=== PATIENT | female | born 1950 | race American Indian/Alaskan Native ===

== ENCOUNTER 2018-08-28 15:27 | Emergency (ER) | payer MEDICARE ==
[2018-08-28] MEDS: Ondansetron 4 MG/2 ML SDV IVPUSH ONE (16:27)
[2018-08-28] MEDS: Sodium Chloride 0.9% 1,000 ML IV SCH (16:27)
--- NOTE | 2018-08-28 16:53 | CR ---
Abdomen: Upright and supine views of the abdomen were obtained. Comparison: No previous abdominal x-ray. Multiple calcifications are seen within the pelvis most likely representing multiple phleboliths. Small sclerotic lesion is noted within the intertrochanteric region of the left hip which is felt compatible with incidental bone island. Bowel gas pattern is normal. No free air is seen. Impression: 1. Incidental findings. Nothing acute is appreciated on two-view abdominal x-ray. Diagnostic code #2
--- NOTE | 2018-08-28 18:33 | EDM.PDOC ---
ED HPI GENERAL MEDICAL PROBLEM - General Chief Complaint: Abdominal Pain Stated Complaint: STOMACH PAIN/CAN NOT EAT ANYTHING Time Seen by Provider: 08/28/18 18:16 Source of Information: Reports: Patient, Family (), RN Notes Reviewed History Limitations: Reports: No Limitations - History of Present Illness INITIAL COMMENTS - FREE TEXT/NARRATIVE: The patient states that she has been experiencing burning left lower quadrant abdominal pain that has been coming and going for about 6 months. She feels that her pain is likely related to constipation, as she feels worse after eating constipating foods, and better after having a bowel movement. She has had nausea for the past 2 days, but no emesis. No recent fever or chills. No urinary symptoms. The patient states that she took one Zofran last night, and that she ordinarily takes Milk of Magnesia on an as-needed basis, but none over the past 2 days. She states that she had a bowel movement today that was not hard. The patient and her state that they moved from [place] about 6 months ago, and have not established a PCP here. Epigastric Pain Score (Numeric/FACES): 9 - Related Data Allergies Allergy/AdvReac Type Severity Reaction Status Date / Time No Known Allergies Allergy Verified 08/28/18 15:46 Home Meds: Home Meds Levofloxacin [Levaquin] 1 tab PO QPM #6 tablet 08/28/18 [Rx] metroNIDAZOLE [Flagyl] 1 tab PO Q8H #20 tab 08/28/18 [Rx] Past Medical History Musculoskeletal History: Reports: Osteoarthritis Psychiatric History: Reports: Other (See Below) (Insomnia) - Past Surgical History Female Surgical History: Reports: Hysterectomy (partial) Musculoskeletal Surgical History: Reports: Knee Replacement (bilateral) Social & Family History - Tobacco Use Smoking Status *Q: Never Smoker Second Hand Smoke Exposure: No - Caffeine Use Caffeine Use: Reports: Tea - Alcohol Use Alcohol Use History: No - Recreational Drug Use Recreational Drug Use: No - Living Situation & Occupation Living situation: Reports: , with Spouse Occupation: Unemployed ED ROS GENERAL - Review of Systems Review Of Systems: ROS reveals no pertinent complaints other than HPI. ED EXAM, GI/ABD - Physical Exam Exam: See Below Exam Limited By: No Limitations General Appearance: Alert, WD/WN, No Apparent Distress Eyes: Bilateral: Normal Appearance, EOMI Ears: Normal External Exam, Hearing Grossly Normal Nose: Normal Inspection Throat/Mouth: Normal Inspection, Normal Lips, Normal Voice, No Airway Compromise Head: Atraumatic, Normocephalic Neck: Normal Inspection, Full Range of Motion Respiratory/Chest: No Respiratory Distress, Lungs Clear, Normal Breath Sounds, No Accessory Muscle Use Cardiovascular: Normal Peripheral Pulses, Regular Rate, Rhythm, No Edema, No Gallop, No JVD, No Murmur, No Rub GI/Abdominal Exam: Normal Bowel Sounds, Soft, No Organomegaly, No Distention, No Abnormal Bruit, No Mass, Tender (Left lower quadrant only. Nontender elsewhere.) (Female) Exam: Deferred Rectal (Female) Exam: Deferred Back Exam: Normal Inspection, Full Range of Motion. No: CVA Tenderness (L), CVA Tenderness (R) Extremities: Normal Inspection, Normal Range of Motion, No Pedal Edema, Normal Capillary Refill Neurological: Alert, Oriented, Normal Cognition, No Motor/Sensory Deficits Psychiatric: Normal Affect Skin Exam: Warm, Dry, Intact, Normal Color, No Rash Course - Vital Signs Last Recorded V/S: Last Vital Signs Temp 37.2 C 08/28/18 15:46 Pulse 73 08/28/18 15:46 Resp 18 08/28/18 15:46 BP 130/75 08/28/18 15:46 Pulse Ox 94 L 08/28/18 15:46 - Orders/Labs/Meds Labs: Laboratory Tests 08/28/18 08/28/18 08/28/18 Range/Units 16:04 16:04 17:04 WBC 6.32 (3.98-10.04) K/mm3 RBC 5.40 H (3.98-5.22) M/mm3 Hgb 10.7 L (11.2-15.7) gm/L Hct 34.9 (34.1-44.9) % MCV 64.6 L (79.4-94.8) fl MCH 19.8 L (25.6-32.2) pg MCHC 30.7 L (32.2-35.5) g/dl RDW Std Deviation 44.0 (36.4-46.3) fL Plt Count 277 (182-369) K/mm3 MPV 10.5 (9.4-12.3) fl Neut % (Auto) 60.8 (34.0-71.1) % Lymph % (Auto) 31.5 (19.3-51.7) % [place] % (Auto) 6.0 (4.7-12.5) % Eos % (Auto) 1.3 (0.7-5.8) Baso % (Auto) 0.2 (0.1-1.2) % Neut # (Auto) 3.85 (1.56-6.13) K/mm3 Lymph # (Auto) 1.99 (1.18-3.74) K/mm3 [place] # (Auto) 0.38 H (0.24-0.36) K/mm3 Eos # (Auto) 0.08 (0.04-0.36) K/mm3 Baso # (Auto) 0.01 (0.01-0.08) K/mm3 Manual Slide Review Abnormal smear Sodium 141 (136-145) mEq/L Potassium 3.8 (3.5-5.1) mEq/L Chloride 105 (98-107) mEq/L Carbon Dioxide 28 (21-32) mEq/L Anion Gap 11.8 (5-15) BUN 8 (7-18) mg/dL Creatinine 1.0 (0.55-1.02) mg/dL Est Cr Clr Drug Dosing 47.14 mL/min Estimated GFR (MDRD) 55 (>60) mL/min BUN/Creatinine Ratio 8.0 L (14-18) Glucose 104 (80-115) mg/dL Calcium 8.7 (8.5-10.1) mg/dL Total Bilirubin 0.4 (0.2-1.0) mg/dL AST 14 L (15-37) U/L ALT 21 (14-59) U/L Alkaline Phosphatase 66 (46-116) U/L C-Reactive Protein 0.9 (<1.0) mg/dL Total Protein 7.9 (6.4-8.2) g/dl Albumin 3.7 (3.4-5.0) g/dl Globulin 4.2 gm/dL Albumin/Globulin Ratio 0.9 L (1-2) Lipase 120 (73-393) U/L Urine Color Yellow (Yellow) Urine Appearance Clear (Clear) Urine pH 7.0 (5.0-8.0) Ur Specific [place] 1.015 (1.005-1.030) Urine Protein Negative (Negative) Urine Glucose (UA) Negative (Negative) Urine Ketones Negative (Negative) Urine Occult Blood Negative (Negative) Urine Nitrite Negative (Negative) Urine Bilirubin Negative (Negative) Urine Urobilinogen 0.2 (0.2-1.0) Ur Leukocyte Esterase Trace H (Negative) Urine RBC 0-5 (0-5) /hpf Urine WBC 0-5 (0-5) /hpf Ur Epithelial Cells 0-5 (0-5) /hpf Urine Bacteria Occasional (FEW) /hpf Urine Mucus Not seen (FEW) /hpf Meds: Medications Discontinued Medications Generic Name Dose Route Start Last Admin Trade Name Freq PRN Reason Stop Dose Admin Diatrizoate Meglum/Diatrizoate Sod 120 ml 08/28/18 19:56 08/28/18 20:10 Gastrografin 37% PO 08/28/18 19:57 120 ml ONETIME ONE Administration Sodium Chloride 1,000 mls @ 150 mls/hr 08/28/18 16:00 08/28/18 16:27 Normal Saline IV 150 mls/hr ASDIRECTED [facility] Administration Iopamidol 100 ml 08/28/18 19:55 08/28/18 20:10 Isovue-300 (61%) IVPUSH 08/28/18 19:56 100 ml ONETIME ONE Administration Levofloxacin 750 mg 08/28/18 20:53 08/28/18 21:05 Levaquin PO 08/28/18 20:54 750 mg ONETIME STA Administration Metronidazole 500 mg 08/28/18 20:54 08/28/18 21:05 Flagyl PO 08/28/18 20:55 500 mg ONETIME ONE Administration Ondansetron HCl 4 mg 08/28/18 15:51 08/28/18 16:27 Zofran IVPUSH 08/28/18 15:52 4 mg ONETIME ONE Administration Sodium Chloride 10 ml 08/28/18 20:15 08/28/18 20:11 Saline Flush FLUSH 10 ml ASDIRECTED [facility] Administration - Re-Assessments/Exams Free Text/Narrative Re-Assessment/Exam: 08/28/18 18:22 Abdominal flat radiographs appears to demonstrate a modest amount of stool in the descending colon, and numerous pelvic phleboliths, otherwise, a nonspecific bowel gas pattern with no abnormalities. Formal read per the Radiologist pending. 08/28/18 18:51 The patient has left lower quadrant abdominal tenderness. I'm concerned about diverticulitis, and have therefore ordered a CT scan of the abdomen and pelvis with oral and IV contrast. 08/28/18 20:50 CT of the abdomen and pelvis with oral and IV contrast is read by Dr. Gomes as: 1. Diverticuli within the sigmoid colon with very minimal inflammatory change suggesting early and mild diverticulitis. 2. Other incidental findings as noted above. 08/28/18 21:02 Test results discussed with the patient and her . As above, the patient appears to have mild diverticulitis. In accordance with current guidelines, the patient will be started on oral Levaquin and oral Flagyl, and I will prescribe a 7-day course. The patient does not feel that her pain is so bad as to require pain medication, which is probably beneficial, as opioids contribute to constipation. I am recommending that the patient eat a low fiber diet for the next several days, until she is feeling better, after which she should switch to a high-fiber diet, permanently. Departure - Departure Time of Disposition: 21:03 Disposition: Home, Self-Care 01 Condition: Fair Clinical Impression: Sigmoid diverticulitis - Discharge Information *PRESCRIPTION DRUG MONITORING PROGRAM REVIEWED*: Not Applicable *COPY OF PRESCRIPTION DRUG MONITORING REPORT IN PATIENT CHRISTOPHER: Not Applicable Prescriptions: Levofloxacin [Levaquin] 1 tab PO QPM #6 tablet metroNIDAZOLE [Flagyl] 1 tab PO Q8H #20 tab Instructions: Diverticulitis, [id number] Referrals: Constance Landaverde MD [Physician] - Forms: ED Department Discharge Additional Instructions: You were seen in the emergency room for lower left abdominal pain that has been coming and going for months. Workup in the ER included blood work, a urinalysis, abdominal x-rays, and a CT scan of your abdomen and pelvis with oral and IV contrast. The CT scan found that you have mild diverticulitis = an infection of your descending colon. He has been started on the antibiotics Flagyl and Levaquin. Prescriptions for Flagyl and Levaquin have been sent to the [facility], located in the [employer] store. Take one tablet of Flagyl every 8 hours, starting around 05:00 tomorrow morning , 08/29/2018, as prescribed. Take one tablet of Levaquin every 24 hours, starting tomorrow evening, Monday , 08/29/2018, as prescribed. Finish both prescriptions unless told otherwise by a doctor. Follow-up with Dr. Constance Landaverde in the clinic as needed. If any other problems, please do not hesitate to return to the ER.
[2018-08-28] MEDS: Diatrizoate Meglumine/Diatrizoate Sodium 37% 120 ML Bottle PO ONE (20:10)
[2018-08-28] MEDS: Iopamidol 612 MG/ML 100 ML Bottle IVPUSH ONE (20:10)
[2018-08-28] MEDS: Sodium Chloride 0.9% 10 ML Syringe FLUSH SCH (20:11)
--- NOTE | 2018-08-28 20:40 | CT ---
CT abdomen and pelvis Technique: Multiple axial sections were obtained from above the dome of the diaphragm inferiorly through the pubic symphysis. Intravenous and oral contrast was utilized. Delayed images were obtained through the bladder. Comparison: Prior abdominal x-ray performed earlier on the same day (4:16 PM). Findings: Visualized lung bases shows nothing acute. Liver contains no focal abnormality. Spleen appears within normal limits. Adrenal glands show no nodule. Pancreas is within normal limits. Gallbladder contains no calcified gallstones. Kidneys show symmetric contrast enhancement without hydronephrosis or mass. Aorta shows no aneurysm. No retroperitoneal adenopathy or mesenteric abnormalities are seen. Diverticuli are seen within the sigmoid colon with very minimal inflammatory change being seen around a portion of the sigmoid colon suspicious for very early and mild diverticulitis. No free fluid or other inflammatory change is seen. Appendix not visualized with certainty. No bowel dilatation is seen. Delayed images shows contrast within the distal ureters and within the bladder. Bone window settings shows mild scattered degenerative change within the spine. Incidental note of small fat-containing umbilical hernia. Impression: 1. Diverticuli within the sigmoid colon with very minimal inflammatory change suggesting early and mild diverticulitis. 2. Other incidental findings as noted above. Diagnostic code #3
[2018-08-28] MEDS: Levofloxacin 750 MG Tab PO STA (21:05)
[2018-08-28] MEDS: metroNIDAZOLE 500 MG Tab PO ONE (21:05)
== END 2018-08-28 21:18 | disposition home or self-care (01) ==
LOC: JD.ED 15:27
DX: K57.32 Diverticulitis of large intestine without perforation or abscess without bleeding (principal)
CPT/HCPCS: 36415; 74019; 74177; 80053; 81001; 83690; 85025; 86140; 96361; 96374; 99284; A9270; J2405; J7040; Q9963; Q9967

== ENCOUNTER 2020-01-12 17:45 | Emergency (ER) | payer MEDICARE, OTHER ==
[2020-01-12] MEDS ORDERED: Ondansetron 4 MG/2 ML SDV IVPUSH ONE (18:19)
[2020-01-12] MEDS ORDERED: Sodium Chloride 0.9% 1,000 ML IV SCH (18:30)
--- NOTE | 2020-01-12 18:36 | EDM.PDOC ---
ED HPI GENERAL MEDICAL PROBLEM - General Chief Complaint: Genitourinary Problem Stated Complaint: PAINFUL URINATION Time Seen by Provider: 01/12/20 18:03 Source of Information: Reports: Patient, Family () History Limitations: Reports: No Limitations - History of Present Illness INITIAL COMMENTS - FREE TEXT/NARRATIVE: Mrs. Mckee is a very pleasant 69-year-old woman with a past medical history significant for diverticulitis, who now presents to the ED stating that she has had 3 days of left-sided abdominal pain and dysuria, similar to previous diverticulitis pain. She also reports feeling feverish, by which she means feeling hot inside, for the past 2 days, and she has had both nausea and vomiting. She is also had 2 days of lower left back pain. She states that she took some Tylenol around 15:00, which, along with a hot water bottle, has helped her pain. She feels better if she is supine. She last ate around noon today. Here in the ED, the patient's initial BP is found to be elevated at 179/83, with slight tachycardia of 101 bpm. She is afebrile, saturating 96% on room air. Other than these symptoms, the patient denies recent chills, sore throat, ear pain, nasal or sinus congestion, cough, dyspnea, chest pain, palpitations, constipation, diarrhea, recent weight gain or weight loss, recent bloody bowel movements or black bowel movements, recent joint aches, headaches, or rashes. The patient does not have a PCP. Lower Abdomen Pain Score (Numeric/FACES): 8 - Related Data Allergies Allergy/AdvReac Type Severity Reaction Status Date / Time No Known Allergies Allergy Verified 01/12/20 18:03 Home Meds: Home Meds levoFLOXacin [Levaquin] 1 tab PO QPM #6 tablet 08/28/18 [Rx] metroNIDAZOLE [Flagyl] 1 tab PO Q8H #20 tab 08/28/18 [Rx] Past Medical History Gastrointestinal History: Reports: Diverticulosis (diverticulitis) Musculoskeletal History: Reports: Osteoarthritis Psychiatric History: Reports: Other (See Below) (Insomnia) - Past Surgical History Female Surgical History: Reports: Hysterectomy (complete) Musculoskeletal Surgical History: Reports: Knee Replacement (bilateral) Social & Family History - Tobacco Use Smoking Status *Q: Never Smoker Second Hand Smoke Exposure: No - Caffeine Use Caffeine Use: Reports: None - Alcohol Use Alcohol Use History: No - Recreational Drug Use Recreational Drug Use: No - Living Situation & Occupation Living situation: Reports: , with Spouse Occupation: Unemployed ED ROS GENERAL - Review of Systems Review Of Systems: Comprehensive ROS is negative, except as noted in HPI. ED EXAM, GI/ABD - Physical Exam Exam: See Below Exam Limited By: No Limitations General Appearance: Alert, WD/WN, No Apparent Distress Eyes: Bilateral: Normal Appearance, EOMI Ears: Normal External Exam, Hearing Grossly Normal Nose: Normal Inspection Throat/Mouth: Normal Inspection, Normal Lips, Normal Voice, No Airway Compromise Head: Atraumatic, Normocephalic Neck: Normal Inspection, Full Range of Motion Respiratory/Chest: No Respiratory Distress, Lungs Clear, Normal Breath Sounds, No Accessory Muscle Use Cardiovascular: Normal Peripheral Pulses, Regular Rate, Rhythm, No Edema, No Gallop, No JVD, No Murmur, No Rub GI/Abdominal Exam: Normal Bowel Sounds, Soft, No Organomegaly, No Distention, No Abnormal Bruit, No Mass, Tender (To the left upper and middle-left, only, with no tenderness to the left lower quadrant, suprapubic region, or elsewhere.) (Female) Exam: Deferred Rectal (Female) Exam: Deferred Back Exam: Normal Inspection, Full Range of Motion, Other (Reproducible tende rness to palpation over the left SI joint). No: CVA Tenderness (L), CVA Tenderness (R) Extremities: Normal Inspection, Normal Range of Motion, No Pedal Edema, Normal Capillary Refill Neurological: Alert, Oriented, Normal Cognition, No Motor/Sensory Deficits Psychiatric: Normal Affect Skin Exam: Warm, Dry, Intact, Normal Color, No Rash Course - Vital Signs Last Recorded V/S: Last Vital Signs Temp 36.3 C 01/12/20 18:01 Pulse 101 H 01/12/20 18:01 Resp 16 01/12/20 18:01 BP 179/83 H 01/12/20 18:01 Pulse Ox 96 01/12/20 18:01 - Orders/Labs/Meds Orders: Active Orders 24 hr Category Date Time Status Sodium Chloride 0.9% [Normal Saline] 1,000 ml Med 01/12/20 18:30 Active IV ASDIRECTED Sodium Chloride 0.9% [Saline Flush] Med 01/12/20 19:52 Active 10 ml FLUSH ONETIME PRN Medication Orders Sodium Chloride (Normal Saline) 1,000 mls @ 150 mls/hr IV ASDIRECTED ISAMAR Last Admin: 01/12/20 18:41 Dose: 150 mls/hr Documented by: ENRIQUE Sodium Chloride (Saline Flush) 10 ml FLUSH ONETIME PRN PRN Reason: Keep Vein Open Last Admin: 01/12/20 20:04 Dose: 10 ml Documented by: FOREIGN Labs: Laboratory Tests 01/12/20 01/12/20 01/12/20 Range/Units 18:00 18:43 18:43 WBC 5.94 (3.98-10.04) K/mm3 RBC 5.40 H (3.98-5.22) M/mm3 Hgb 11.0 L (11.2-15.7) gm/dl Hct 36.0 (34.1-44.9) % MCV 66.7 L (79.4-94.8) fl MCH 20.4 L (25.6-32.2) pg MCHC 30.6 L (32.2-35.5) g/dl RDW Std Deviation 45.7 (36.4-46.3) fL Plt Count 266 (182-369) K/mm3 MPV 10.7 (9.4-12.3) fl Neutrophils % (Manual) 64 H (40-60) % Band Neutrophils % 0 (0-10) % Lymphocytes % (Manual) 28 (20-40) % Atypical Lymphs % 2 % Monocytes % (Manual) 3 (2-10) % Eosinophils % (Manual) 1 (0.7-5.8) % Basophils % (Manual) 2 H (0.1-1.2) Platelet Estimate Adequate Hypochromasia 1+ slight Poikilocytosis 1+ slight Anisocytosis 1+ slight Microcytosis 1+ slight Ovalocytes 1+ slight RBC Morph Comment Not Reportable Sodium 142 (136-145) mEq/L Potassium 3.7 (3.5-5.1) mEq/L Chloride 104 (98-107) mEq/L Carbon Dioxide 26 (21-32) mEq/L Anion Gap 15.7 H (5-15) BUN 10 (7-18) mg/dL Creatinine 1.1 H (0.55-1.02) mg/dL Est Cr Clr Drug Dosing 35.16 mL/min Estimated GFR (MDRD) 49 (>60) mL/min BUN/Creatinine Ratio 9.1 L (14-18) Glucose 135 H (80-115) mg/dL Calcium 9.2 (8.5-10.1) mg/dL Total Bilirubin 0.4 (0.2-1.0) mg/dL AST 16 (15-37) U/L ALT 22 (14-59) U/L Alkaline Phosphatase 52 (46-116) U/L Total Protein 7.8 (6.4-8.2) g/dl Albumin 3.9 (3.4-5.0) g/dl Globulin 3.9 gm/dL Albumin/Globulin Ratio 1.0 (1-2) Urine Color Light yellow (Yellow) Urine Appearance Clear (Clear) Urine pH 6.5 (5.0-8.0) Ur Specific [place] 1.010 (1.005-1.030) Urine Protein Negative (Negative) Urine Glucose (UA) Negative (Negative) Urine Ketones Negative (Negative) Urine Occult Blood Negative (Negative) Urine Nitrite Negative (Negative) Urine Bilirubin Negative (Negative) Urine Urobilinogen 0.2 (0.2-1.0) Ur Leukocyte Esterase 1+ H (Negative) Urine RBC Not seen (0-5) /hpf Urine WBC 0-5 (0-5) /hpf Ur Squamous Epith Cells 0-5 (0-5) /hpf Urine Bacteria Not seen (FEW) /hpf Urine Mucus Not seen (FEW) /hpf Meds: Medications Generic Name Dose Route Start Last Admin Trade Name Freq PRN Reason Stop Dose Admin Sodium Chloride 1,000 mls @ 150 mls/hr 01/12/20 18:30 01/12/20 18:41 Normal Saline IV 150 mls/hr ASDIRECTED [facility] Administration Sodium Chloride 10 ml 01/12/20 19:52 01/12/20 20:04 Saline Flush FLUSH 10 ml ONETIME PRN Administration Keep Vein Open Discontinued Medications Generic Name Dose Route Start Last Admin Trade Name Freq PRN Reason Stop Dose Admin Diatrizoate Meglum/Diatrizoate Sod 120 ml 01/12/20 19:52 01/12/20 20:04 Gastrografin 37% PO 01/12/20 19:53 60 ml ONETIME ONE Administration Iopamidol 100 ml 07/12/20 19:52 01/12/20 20:04 Isovue-300 (61%) IVPUSH 01/12/20 19:53 100 ml ONETIME ONE Administration Ondansetron HCl 4 mg 01/12/20 18:19 01/12/20 18:41 Zofran IVPUSH 01/12/20 18:20 4 mg ONETIME ONE Administration - Re-Assessments/Exams Free Text/Narrative Re-Assessment/Exam: 01/12/20 18:21 As above, the patient has had 3 days of dysuria and left abdominal pain (not lower abdominal pain, as indicated in the triage note), along with 2 days of lower left back pain, feeling feverish, and nausea and vomiting. On physical exam, the patient has reproducible tenderness to the left side of her abdomen, but no tenderness elsewhere, including her suprapubic region. No CVA tenderness, although I am able to reproduce the pain to the lower left back with direct palpation over the left SI joint. It is unclear if the patient's presentation represents a UTI, a ureterolith, or diverticulitis. For that reason, I have ordered a CBC, CMP, and CT scan of the abdomen and pelvis with oral and IV contrast. A urinalysis was ordered at triage. In the meantime, the patient will be given IV fluid and IV Zofran. She declined an offer for pain medication. 01/12/20 19:34 The patient's CBC is remarkable for a Hgb slightly depressed at 11.0, but with a Hct normal at 36.0. The remainder of her CBC is unremarkable. Her CMP is remarkable for an anion gap slightly elevated at 15.7, but with a bicarbonate normal at 26. Her Cr is slightly elevated at 1.1, but with a BUN normal at 10. Her blood glucose is slightly elevated at 135, with the remainder of her CMP being unremarkable. Her urinalysis is remarkable for negative occult blood with no RBCs seen, 1+ leukocyte Estrace with 0-5 WBCs, nitrite negative with no bacteria seen, and 0-5 squamous epithelial cells. 01/12/20 20:48 CT of the abdomen and pelvis with oral and IV contrast as read by Dr. Gomes as: 1. Findings as noted above. 2. Nothing acute is appreciated on CT study of the abdomen and pelvis. 01/12/20 20:58 Test results discussed with the patient (her is not currently present). As above, today's work-up is unremarkable, and does not explain the cause of her symptoms. I explained to the patient that with a negative work-up, I can only speculate as to the cause. The patient wondered whether or not constipation might be the cause of her symptoms. I explained that it is possible, although the CT report makes no mention of constipation. She stated that she gets a s imilar pain about every 6 or 9 months, and wonders what she might be able to do about constipation. I recommended that she increase the bulk fiber in her diet, with something like Metamucil. Departure - Departure Time of Disposition: 21:00 Disposition: Home, Self-Care 01 Condition: Good Clinical Impression: Left-sided abdominal pain of unknown etiology, Dysuria, Nausea & vomiting - Discharge Information *PRESCRIPTION DRUG MONITORING PROGRAM REVIEWED*: Not Applicable *COPY OF PRESCRIPTION DRUG MONITORING REPORT IN PATIENT CHRISTOPHER: Not Applicable Referrals: PCP,None [Primary Care Provider] - Milena Guevara NP [Nurse Practitioner] - Forms: ED Department Discharge Additional Instructions: You were seen in the emergency room for 3 days of left sided abdominal pain with difficulty urinating, 2 days of feeling feverish with lower back pain, and nausea and vomiting. Work-up in the ER included blood work, a urinalysis, and a CT scan of your abdomen and pelvis with oral and IV contrast. Your entire work-up was unremarkable. You do not have a urinary tract infection. Your blood work was unremarkable. The CT scan did not find any abnormalities that might explain the cause of your symptoms. Going forward, we recommend that you increase the bulk fiber in your diet with something like Metamucil, and a large glass of water, once a day. We recommend that you follow-up with Milena Guevara NP, or one of the other providers in the clinic, to establish a PCP. If any other problems, please do not hesitate to return to the ER. Sepsis Event Note (ED) - Evaluation Sepsis Screening Result: No Definite Risk - Focused Exam Vital Signs: Vital Signs Temp Pulse Resp BP Pulse Ox 01/12/20 18:01 36.3 C 101 H 16 179/83 H 96 - My Orders Last 24 Hours: My Active Orders 01/12/20 18:30 Sodium Chloride 0.9% [Normal Saline] 1,000 ml IV ASDIRECTED 01/12/20 19:52 Sodium Chloride 0.9% [Saline Flush] 10 ml FLUSH ONETIME PRN - Assessment/Plan Last 24 Hours: My Active Orders 01/12/20 18:30 Sodium Chloride 0.9% [Normal Saline] 1,000 ml IV ASDIRECTED 01/12/20 19:52 Sodium Chloride 0.9% [Saline Flush] 10 ml FLUSH ONETIME PRN
[2020-01-12] MEDS ORDERED: Diatrizoate Meglumine/Diatrizoate Sodium 37% 120 ML Bottle PO ONE (19:52)
[2020-01-12] MEDS ORDERED: Sodium Chloride 0.9% 10 ML Syringe FLUSH PRN (19:52)
[2020-01-12] MEDS ORDERED: Iopamidol 612 MG/ML 100 ML Bottle IVPUSH ONE (19:52)
--- NOTE | 2020-01-12 20:28 | CT ---
CT abdomen and pelvis Comparison: Prior CT abdomen and pelvis study of 08/28/18. Technique: Multiple axial sections were obtained from above the dome of the diaphragm inferiorly through the pubic symphysis. Intravenous and oral contrast was utilized. Delayed images were also obtained through the bladder. Findings: Visualized lung bases shows nothing acute. Liver contains no focal parenchymal abnormality. Spleen appears within normal limits. Adrenal glands show no nodule. Pancreas shows no discrete abnormality. Gallbladder is somewhat collapsed but shows no calcified gallstones. Aorta shows no aneurysmal with mild atherosclerotic change. No retroperitoneal adenopathy or mesenteric abnormalities are seen. No pelvic mass or adenopathy is noted. Diverticuli are seen within the sigmoid colon without inflammatory change of diverticulitis. Kidneys show symmetric contrast enhancement without hydronephrosis. Delayed images shows contrast within the distal ureters and bladder. Appendix is seen which is normal in size. No free fluid or inflammatory change is appreciated. Bone window settings were reviewed which appear within normal limits for the patient's age. Small fat-containing umbilical hernia is noted. Impression: 1. Findings as noted above. 2. Nothing acute is appreciated on CT study of the abdomen and pelvis. Diagnostic code #2 Study was dictated in MDT
== END 2020-01-12 21:11 | disposition home or self-care (01) ==
LOC: JD.ED 17:45
DX: R10.12 Left upper quadrant pain (principal); R11.2 Nausea with vomiting, unspecified; R30.0 Dysuria; Z90.710 Acquired absence of both cervix and uterus
CPT/HCPCS: 36415; 74177; 80053; 81001; 85007; 85027; 96361; 96374; 99284; J2405; J7030; Q9963; Q9967

== ENCOUNTER 2020-03-03 11:32 | Emergency (ER) | payer MEDICARE ==
[2020-03-03] MEDS ORDERED: Sodium Chloride 0.9% 10 ML Syringe FLUSH PRN (11:55)
[2020-03-03] MEDS ORDERED: Sodium Chloride 0.9% 1,000 ML IV SCH (12:00)
[2020-03-03] MEDS ORDERED: Ketorolac 30 MG/ML SDV IVPUSH ONE (12:00)
--- NOTE | 2020-03-03 12:08 | EDM.PDOC ---
ED HPI GENERAL MEDICAL PROBLEM - General Chief Complaint: Abdominal Pain Stated Complaint: SOB Time Seen by Provider: 03/03/20 11:42 Source of Information: Reports: Patient History Limitations: Reports: No Limitations - History of Present Illness INITIAL COMMENTS - FREE TEXT/NARRATIVE: Patient is a 69-year-old female who presents to the emergency department with complaints of left upper quadrant abdominal pain, burning with urination, and shortness of breath. She states the symptoms began last evening. States she has a problem with chronic constipation and feels that she could be constipated at this time. She uses [id number] MiraLAX. States she did have a small bowel movement around 5 PM last evening, however she has not been passing much gas since that time and has not had any further bowel movements. She has an albuterol inhaler at home from a previous illness that she has been using. She states this does help somewhat. She denies any cough, nausea, vomiting fever, chills. Left Upper Abdomen Pain Score (Numeric/FACES): 8 - Related Data Allergies Allergy/AdvReac Type Severity Reaction Status Date / Time No Known Allergies Allergy Verified 03/03/20 11:41 Home Meds: Home Meds Acetaminophen [Tylenol Arthritis] 650 mg PO Q6HR PRN 03/03/20 [History] LORazepam [Ativan] 2 mg PO BEDTIME PRN 03/03/20 [History] Magnesium Hydroxide [Milk of Magnesia] 30 ml PO DAILY 03/03/20 [History] Nitrofurantoin Monohyd/M-Cryst [Macrobid 100 mg Capsule] 100 mg PO BID 5 Days #9 capsule 03/03/20 [Rx] Past Medical History HEENT History: Reports: Impaired Vision Cardiovascular History: Reports: None Respiratory History: Reports: Asthma Gastrointestinal History: Reports: Diverticulosis [employer]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: Musculoskeletal History: Reports: Osteoarthritis Neurological History: Reports: None Psychiatric History: Reports: Anxiety Endocrine/Metabolic History: Reports: None Hematologic History: Reports: None Immunologic History: Reports: None Oncologic (Cancer) History: Reports: None Dermatologic History: Reports: None - Infectious Disease History Infectious Disease History: Reports: None - Past Surgical History Female Surgical History: Reports: Hysterectomy Musculoskeletal Surgical History: Reports: Knee Replacement Social & Family History - Tobacco Use Smoking Status *Q: Never Smoker - Caffeine Use Caffeine Use: Reports: None - Recreational Drug Use Recreational Drug Use: No - Living Situation & Occupation Living situation: Reports: , with Spouse Occupation: Unemployed ED ROS GENERAL - Review of Systems Review Of Systems: See Below Constitutional: Reports: No Symptoms. Denies: Fever, Chills, Weakness HEENT: Reports: No Symptoms Respiratory: Reports: Shortness of Breath. Denies: Wheezing, Pleuritic Chest Pain, Cough Cardiovascular: Reports: No Symptoms. Denies: Chest Pain Endocrine: Reports: No Symptoms GI/Abdominal: Reports: Abdominal Pain (LUQ), Constipation. Denies: Nausea, Vomiting : Reports: Dysuria, Frequency. Denies: Flank Pain Musculoskeletal: Reports: No Symptoms Skin: Reports: No Symptoms Neurological: Reports: No Symptoms Psychiatric: Reports: No Symptoms Hematologic/Lymphatic: Reports: No Symptoms Immunologic: Reports: No Symptoms ED EXAM, GI/ABD - Physical Exam Exam: See Below General Appearance: Alert, WD/WN, No Apparent Distress Respiratory/Chest: No Respiratory Distress, Lungs Clear, Normal Breath Sounds, No Accessory Muscle Use, Chest Non-Tender Cardiovascular: Normal Peripheral Pulses, Regular Rate, Rhythm, No Edema, No Gallop, No JVD, No Murmur, No Rub GI/Abdominal Exam: Normal Bowel Sounds, Soft, No Organomegaly, No Distention, No Abnormal Bruit, No Mass, Pelvis Stable, Tender (LUQ) Neurological: Alert, Oriented, CN II-XII Intact, Normal Cognition, Normal Gait, Normal Reflexes, No Motor/Sensory Deficits Psychiatric: Normal Affect, Normal Mood Course - Vital Signs Last Recorded V/S: Last Vital Signs Temp 96.7 F L 03/03/20 11:38 Pulse 90 03/03/20 11:38 Resp 18 03/03/20 11:38 BP 159/91 H 03/03/20 11:38 Pulse Ox 99 03/03/20 11:38 - Orders/Labs/Meds Orders: Active Orders 24 hr Category Date Time Status CULTURE URINE [RM] Stat Lab 03/03/20 12:50 Ordered Peripheral IV Insertion Adult [OM.PC] Stat Oth 03/03/20 11:54 Ordered Labs: Laboratory Tests 03/03/20 03/03/20 03/03/20 Range/Units 11:50 12:20 12:20 WBC 7.16 (3.98-10.04) K/mm3 RBC 5.62 H (3.98-5.22) M/mm3 Hgb 11.4 (11.2-15.7) gm/dl Hct 37.1 (34.1-44.9) % MCV 66.0 L (79.4-94.8) fl MCH 20.3 L (25.6-32.2) pg MCHC 30.7 L (32.2-35.5) g/dl RDW Std Deviation 39.9 (36.4-46.3) fL Plt Count 266 (182-369) K/mm3 MPV 11.4 (9.4-12.3) fl Neut % (Auto) 66.3 (34.0-71.1) % Lymph % (Auto) 25.3 (19.3-51.7) % [place] % (Auto) 7.3 (4.7-12.5) % Eos % (Auto) 0.8 (0.7-5.8) Baso % (Auto) 0.3 (0.1-1.2) % Neut # (Auto) 4.75 (1.56-6.13) K/mm3 Lymph # (Auto) 1.81 (1.18-3.74) K/mm3 [place] # (Auto) 0.52 H (0.24-0.36) K/mm3 Eos # (Auto) 0.06 (0.04-0.36) K/mm3 Baso # (Auto) 0.02 (0.01-0.08) K/mm3 Sodium 140 (136-145) mEq/L Potassium 3.9 (3.5-5.1) mEq/L Chloride 104 (98-107) mEq/L Carbon Dioxide 25 (21-32) mEq/L Anion Gap 14.9 (5-15) BUN 12 (7-18) mg/dL Creatinine 0.8 (0.55-1.02) mg/dL Est Cr Clr Drug Dosing 58.12 mL/min Estimated GFR (MDRD) > 60 (>60) mL/min BUN/Creatinine Ratio 15.0 (14-18) Glucose 102 (80-115) mg/dL Calcium 9.4 (8.5-10.1) mg/dL Total Bilirubin 0.4 (0.2-1.0) mg/dL AST 14 L (15-37) U/L ALT 22 (14-59) U/L Alkaline Phosphatase 57 (46-116) U/L C-Reactive Protein 1.5 H* (<1.0) mg/dL Total Protein 8.1 (6.4-8.2) g/dl Albumin 4.0 (3.4-5.0) g/dl Globulin 4.1 gm/dL Albumin/Globulin Ratio 1.0 (1-2) Lipase 125 (73-393) U/L Urine Color Yellow (Yellow) Urine Appearance Clear (Clear) Urine pH 7.0 (5.0-8.0) Ur Specific [place] 1.015 (1.005-1.030) Urine Protein Negative (Negative) Urine Glucose (UA) Negative (Negative) Urine Ketones Negative (Negative) Urine Occult Blood Negative (Negative) Urine Nitrite Negative (Negative) Urine Bilirubin Negative (Negative) Urine Urobilinogen 0.2 (0.2-1.0) Ur Leukocyte Esterase 1+ H (Negative) Urine RBC 0-5 (0-5) /hpf Urine WBC 5-10 H (0-5) /hpf Ur Squamous Epith Cells 0-5 (0-5) /hpf Amorphous Sediment Rare H (NOT SEEN) /hpf Urine Bacteria Few (FEW) /hpf Urine Mucus Not seen (FEW) /hpf Meds: Medications Discontinued Medications Generic Name Dose Route Start Last Admin Trade Name Sukhjinderq PRN Reason Stop Dose Admin Sodium Chloride 1,000 mls @ 150 mls/hr 03/03/20 12:00 03/03/20 12:24 Normal Saline IV 150 mls/hr ASDIRECTED ISAMAR Administration Ketorolac Tromethamine 30 mg 03/03/20 12:00 03/03/20 12:23 Toradol IVPUSH 03/03/20 12:01 30 mg ONETIME ONE Administration Magnesium Citrate 296 ml 03/03/20 13:48 03/03/20 14:09 Citrate Of Magnesia PO 03/03/20 13:49 296 ml ONETIME ONE Administration Nitrofurantoin Macrocrystals 100 mg 03/03/20 13:48 03/03/20 14:09 Macrobid PO 03/03/20 13:49 100 mg ONETIME ONE Administration Sodium Chloride 10 ml 03/03/20 11:55 03/03/20 12:23 Saline Flush FLUSH 10 ml ASDIRECTED PRN Administration Keep Vein Open - Re-Assessments/Exams Free Text/Narrative Re-Assessment/Exam: Patient is a 69-year-old female who presents to the emergency department with complaints of left upper quadrant abdominal pain, shortness of breath, and burning with urination. Vital signs in triage were stable. Oxygen saturation was 99% on room air. Patient is afebrile. She does have a history of diverticulitis, however has no left lower quadrant tenderness. I have ordered a CBC, CMP, CRP, lipase, urinalysis, abdomen x-ray flat and upright and a two- view chest. We will start NS at 150 mils per hour and give Toradol 30 mg IV. 03/03/20 13:42 Patient is feeling much better after the Toradol. Her shortness of breath has resolved. My suspicion is that she has fullness in her abdomen which is pushing up on her diaphragm causing her to feel short of breath. Abdomen flat and upright showed a normal bowel gas pattern. There is increased stool throughout the descending colon. Urinalysis was positive for 1+ leukocyte esterase and 5- 10 WBCs. Hematology was grossly unremarkable. Lipase was normal. Since she is having urinary symptoms, we will treat with Macrobid. I will also send her home with a bottle of magnesium citrate. Discharge instructions as documented. Departure - Departure Time of Disposition: 13:49 Disposition: Home, Self-Care 01 Condition: Good Clinical Impression: Abdominal pain Qualifiers: Abdominal location: left upper quadrant Qualified Code(s): R10.12 - Left upper quadrant pain Urinary tract infection Qualifiers: Urinary tract infection type: site unspecified Hematuria presence: without hematuria Qualified Code(s): N39.0 - Urinary tract infection, site not specified - Discharge Information *PRESCRIPTION DRUG MONITORING PROGRAM REVIEWED*: No *COPY OF PRESCRIPTION DRUG MONITORING REPORT IN PATIENT CHRISTOPHER: No Prescriptions: Nitrofurantoin Monohyd/M-Cryst [Macrobid 100 mg Capsule] 100 mg PO BID 5 Days #9 capsule Instructions: Constipation, Adult, [id number], Urinary Tract Infection, Adult Referrals: PCP,None [Primary Care Provider] - Forms: ED Department Discharge Additional Instructions: You were seen in the emergency department today for left upper quadrant abdominal pain, shortness of breath, and burning with urination. Your work-up included blood work, urinalysis, and an x-ray of your chest and abdomen. Results the work-up showed that you have a urinary tract infection as well as some increased stool throughout the left side of your colon. You have been started on Macrobid which is an antibiotic for urinary tract infection. You have been sent home with a bottle of magnesium citrate. Drink this bottle in its entirety when you get home. Should produce a number of bowel movements, some of which may be loose, however this should improve your left upper quadrant abdominal pain. Recommend that you increase your fiber and fluid intake. Take a capful of MiraLAX daily until you achieve a regular bowel pattern. Return to the ER as needed. Sepsis Event Note (ED) - Evaluation Sepsis Screening Result: No Definite Risk - Focused Exam Vital Signs: Vital Signs Temp Pulse Resp BP Pulse Ox 03/03/20 11:38 96.7 F L 90 18 159/91 H 99 - My Orders Last 24 Hours: My Active Orders 03/03/20 11:54 Peripheral IV Insertion Adult [OM.PC] Stat 03/03/20 12:50 CULTURE URINE [RM] Stat - Assessment/Plan Last 24 Hours: My Active Orders 03/03/20 11:54 Peripheral IV Insertion Adult [OM.PC] Stat 03/03/20 12:50 CULTURE URINE [RM] Stat
--- NOTE | 2020-03-03 12:25 | CR ---
Chest: 2 views of the chest were obtained. Comparison: No prior chest imaging is available. Heart size at the upper limits of normal. Tortuous thoracic aorta is seen. Lungs are clear with no acute parenchymal change. Bony structures show slight degenerative change. Impression: 1. Nothing acute is appreciated on 2 view chest x-ray. Diagnostic code #2 Study was dictated in MDT
--- NOTE | 2020-03-03 12:30 | CR ---
Abdomen: Supine and upright views of the abdomen were obtained. Comparison: Prior abdominal x-ray of 08/28/18. Bowel gas pattern is normal. Calcifications are seen within the pelvis compatible phleboliths. Stable bone island is noted within the left hip. Mild endplate spurring is seen within the spine. No free air is seen. Impression: 1. Nonacute findings as noted above. Diagnostic code #2 Study was dictated in MDT
[2020-03-03] MEDS ORDERED: Magnesium Citrate Solution 296 ML Bottle PO ONE (13:48)
[2020-03-03] MEDS ORDERED: Nitrofurantoin Monohydrate/Macrocrystalline 100 MG Cap PO ONE (13:48)
== END 2020-03-03 14:14 | disposition home or self-care (01) ==
LOC: JD.ED 11:32
DX: N39.0 Urinary tract infection, site not specified (principal); R10.12 Left upper quadrant pain; J45.909 Unspecified asthma, uncomplicated; Z90.710 Acquired absence of both cervix and uterus
CPT/HCPCS: 36415; 71046; 74019; 80053; 81001; 83690; 85025; 86140; 87086; 96361; 96374; 99285; A9270; J1885; J7030; 99283

== ENCOUNTER 2020-04-07 17:47 | Emergency (ER) | payer MEDICARE ==
--- NOTE | 2020-04-07 19:40 | EDM.PDOC ---
ED HPI GENERAL MEDICAL PROBLEM - General Chief Complaint: Fever Stated Complaint: [id number] Time Seen by Provider: 04/07/20 18:03 Source of Information: Reports: Patient History Limitations: Reports: No Limitations - History of Present Illness INITIAL COMMENTS - FREE TEXT/NARRATIVE: The patient presents with fever, body aches, low back pain and fatigue. This has been going on for about 6 days. She denies any cough, congestion, runny nose, abdominal pain, nausea or vomiting. She has a decreased appetite. She has no dysuria. She has no medical problems. Onset: Gradual Duration: Day(s): (6) Location: Reports: Back, Generalized Quality: Reports: Ache Severity: Moderate Improves with: Reports: None Worsens with: Reports: None Associated Symptoms: Reports: Fever/Chills. Denies: Chest Pain, Cough, Headaches, Nausea/Vomiting, Shortness of Breath Lower Back Pain Score (Numeric/FACES): 6 - Related Data Allergies Allergy/AdvReac Type Severity Reaction Status Date / Time No Known Allergies Allergy Verified 04/07/20 17:58 Home Meds: Home Meds Diclofenac Sodium [Voltaren] 50 mg PO ASDIRECTED PRN 04/07/20 [History] Diphenhyd/Phenyleph/Acetaminop [Theraflu Expressmax Night Cplt] 1 tab PO ASDIRECTED PRN 04/07/20 [History] Past Medical History HEENT History: Reports: Impaired Vision Cardiovascular History: Reports: None Respiratory History: Reports: Asthma Gastrointestinal History: Reports: Diverticulosis [employer]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: Musculoskeletal History: Reports: Osteoarthritis Neurological History: Reports: None Psychiatric History: Reports: Anxiety Endocrine/Metabolic History: Reports: None Hematologic History: Reports: None Immunologic History: Reports: None Oncologic (Cancer) History: Reports: None Dermatologic History: Reports: None - Infectious Disease History Infectious Disease History: Reports: None - Past Surgical History Female Surgical History: Reports: Hysterectomy Musculoskeletal Surgical History: Reports: Knee Replacement Social & Family History - Tobacco Use Smoking Status *Q: Never Smoker Second Hand Smoke Exposure: No - Caffeine Use Caffeine Use: Reports: Tea - Recreational Drug Use Recreational Drug Use: No - Living Situation & Occupation Living situation: Reports: , with Spouse Occupation: Unemployed ED ROS GENERAL - Review of Systems Review Of Systems: See Below Constitutional: Reports: Fever, Chills, Fatigue HEENT: Reports: No Symptoms Respiratory: Reports: No Symptoms Cardiovascular: Reports: No Symptoms Endocrine: Reports: No Symptoms GI/Abdominal: Reports: No Symptoms : Reports: No Symptoms Musculoskeletal: Reports: Back Pain ED EXAM, SEPSIS - Physical Exam Exam: See Below Exam Limited By: No Limitations General Appearance: Alert, No Apparent Distress Ears: Normal External Exam Nose: Normal Inspection Head: Atraumatic, Normocephalic Neck: Normal Inspection Respiratory/Chest: No Respiratory Distress, Lungs Clear, Normal Breath Sounds Cardiovascular: Regular Rate, Rhythm, No Edema, No Murmur GI/Abdominal Exam: Soft, Non-Tender, No Organomegaly, No Mass Back: Normal Inspection Extremities: Normal Inspection Course - Vital Signs Last Recorded V/S: Last Vital Signs Temp 97.1 F 04/07/20 17:55 Pulse 105 H 04/07/20 17:55 Resp 12 04/07/20 17:55 BP 124/70 04/07/20 17:55 Pulse Ox 97 04/07/20 17:55 - Orders/Labs/Meds Orders: Active Orders 24 hr Category Date Time Status CXR [Chest 1V Frontal] [CR] Stat Exams 04/07/20 18:14 Taken CORONAVIRUS COVID-19 PCR PHL Stat Lab 04/07/20 18:43 Received Labs: Laboratory Tests 04/07/20 04/07/20 04/07/20 Range/Units 18:34 18:34 18:40 WBC 5.05 (3.98-10.04) K/mm3 RBC 5.70 H (3.98-5.22) M/mm3 Hgb 11.4 (11.2-15.7) gm/dl Hct 37.0 (34.1-44.9) % MCV 64.9 L (79.4-94.8) fl MCH 20.0 L (25.6-32.2) pg MCHC 30.8 L (32.2-35.5) g/dl RDW Std Deviation 41.4 (36.4-46.3) fL Plt Count 192 (182-369) K/mm3 MPV 9.9 (9.4-12.3) fl Neut % (Auto) 69.3 (34.0-71.1) % Lymph % (Auto) 23.0 (19.3-51.7) % [place] % (Auto) 7.3 (4.7-12.5) % Eos % (Auto) 0 L (0.7-5.8) Baso % (Auto) 0.2 (0.1-1.2) % Neut # (Auto) 3.50 (1.56-6.13) K/mm3 Lymph # (Auto) 1.16 L (1.18-3.74) K/mm3 [place] # (Auto) 0.37 H (0.24-0.36) K/mm3 Eos # (Auto) 0.00 L (0.04-0.36) K/mm3 Baso # (Auto) 0.01 (0.01-0.08) K/mm3 Manual Slide Review Abnormal smear Sodium 140 (136-145) mEq/L Potassium 3.4 L (3.5-5.1) mEq/L Chloride 102 (98-107) mEq/L Carbon Dioxide 28 (21-32) mEq/L Anion Gap 13.4 (5-15) BUN 8 (7-18) mg/dL Creatinine 1.0 (0.55-1.02) mg/dL Est Cr Clr Drug Dosing 45.85 mL/min Estimated GFR (MDRD) 55 (>60) mL/min BUN/Creatinine Ratio 8.0 L (14-18) Glucose 158 H (80-115) mg/dL Calcium 8.6 (8.5-10.1) mg/dL Total Bilirubin 0.4 (0.2-1.0) mg/dL AST 19 (15-37) U/L ALT 26 (14-59) U/L Alkaline Phosphatase 59 (46-116) U/L Total Protein 7.5 (6.4-8.2) g/dl Albumin 3.5 (3.4-5.0) g/dl Globulin 4.0 gm/dL Albumin/Globulin Ratio 0.9 L (1-2) Urine Color Yellow (Yellow) Urine Appearance Clear (Clear) Urine pH 6.0 (5.0-8.0) Ur Specific [place] 1.020 (1.005-1.030) Urine Protein Trace H (Negative) Urine Glucose (UA) Negative (Negative) Urine Ketones Negative (Negative) Urine Occult Blood Negative (Negative) Urine Nitrite Negative (Negative) Urine Bilirubin Negative (Negative) Urine Urobilinogen 0.2 (0.2-1.0) Ur Leukocyte Esterase 1+ H (Negative) Urine RBC 0-5 (0-5) /hpf Urine WBC 10-20 H (0-5) /hpf Ur Squamous Epith Cells 5-10 H (0-5) /hpf Urine Bacteria Few (FEW) /hpf Urine Mucus Few (FEW) /hpf - Re-Assessments/Exams Free Text/Narrative Re-Assessment/Exam: 04/07/20 19:38 I ordered labs, CXR, UA and COVID 19. Her CXR looks good. Her CBC and CMP look good. Her UA shows no UTI. The COVID 19 test will take a few days to return. I will call her with results. Departure - Departure Time of Disposition: 19:50 Disposition: Home, Self-Care 01 Condition: Good Clinical Impression: Viral URI Fever Qualifiers: Fever type: unspecified Qualified Code(s): R50.9 - Fever, unspecified - Discharge Information *PRESCRIPTION DRUG MONITORING PROGRAM REVIEWED*: Not Applicable *COPY OF PRESCRIPTION DRUG MONITORING REPORT IN PATIENT CHRISTOPHER: Not Applicable Referrals: PCP,None [Primary Care Provider] - Forms: ED Department Discharge Additional Instructions: Drink plenty of fluids. Take acetaminophen 650mg to 1,000mg every 4 hours as needed for fever. If that does not help, you can try motrin or ibuprofen 400mg every 6 hours. We will call you with the COVID 19 results. Please return if you are worse. Sepsis Event Note (ED) - Evaluation Sepsis Screening Result: No Definite Risk - Focused Exam Vital Signs: Vital Signs Temp Pulse Resp BP Pulse Ox 04/07/20 17:55 97.1 F 105 H 12 124/70 97 - My Orders Last 24 Hours: My Active Orders 04/07/20 18:14 CXR [Chest 1V Frontal] [CR] Stat 04/07/20 18:43 CORONAVIRUS COVID-19 PCR PHL Stat - Assessment/Plan Last 24 Hours: My Active Orders 04/07/20 18:14 CXR [Chest 1V Frontal] [CR] Stat 04/07/20 18:43 CORONAVIRUS COVID-19 PCR PHL Stat
--- NOTE | 2020-05-05 16:47 | CR ---
PROCEDURE INFORMATION: Exam: XR Chest, 1 View Exam date and time: 04/07/2020 6:55 PM Age: 70 years old Clinical indication: Fever TECHNIQUE: Imaging protocol: XR of the chest Views: 1 view. COMPARISON: DX Chest 2V 03/03/2020 12:07 PM FINDINGS: Lungs: Unremarkable. No consolidation. Pleural space: Unremarkable. No pleural effusion. No pneumothorax. Heart/Mediastinum: Unremarkable. No cardiomegaly. Bones/joints: Unremarkable. IMPRESSION: No acute findings. Thank you for allowing us to participate in the care of your patient. Dictated and Authenticated by: Salinas Cristina MD 05/05/2020 4:56 PM Central Time ([place] & [place]) DA
== END 2020-04-07 20:00 | disposition home or self-care (01) ==
LOC: JD.ED 17:47
DX: J06.9 Acute upper respiratory infection, unspecified (principal); J45.909 Unspecified asthma, uncomplicated; Z20.828 Contact with and (suspected) exposure to other viral communicable diseases
CPT/HCPCS: 36415; 71045; 71045-26; 80053; 81001; 85025; 99282; 99283-25; U0002

== ENCOUNTER 2020-07-11 09:42 | Emergency (ER) | payer MEDICARE ==
[2020-07-11] MEDS ORDERED: Sodium Chloride 0.9% 10 ML Syringe FLUSH PRN ×2 (10:19→10:24)
[2020-07-11] MEDS ORDERED: Sodium Chloride 0.9% 1,000 ML IV STA (10:19)
[2020-07-11] MEDS ORDERED: Ondansetron 4 MG/2 ML SDV IVPUSH ONE (10:19)
[2020-07-11] MEDS ORDERED: HYDROmorphone 0.5 MG/0.5 ML Syringe IVPUSH ONE ×2 (10:20→12:48)
[2020-07-11] MEDS ORDERED: Iopamidol 612 MG/ML 100 ML Bottle IVPUSH ONE (10:24)
[2020-07-11] MEDS ORDERED: Diatrizoate Meglumine/Diatrizoate Sodium 37% 120 ML Bottle PO ONE (10:24)
--- NOTE | 2020-07-11 10:34 | EDM.PDOC ---
ED HPI GENERAL MEDICAL PROBLEM - General Chief Complaint: Abdominal Pain Stated Complaint: ABDOMINAL PAIN Time Seen by Provider: 07/11/20 09:54 Source of Information: Reports: Patient, Family History Limitations: Reports: No Limitations - History of Present Illness INITIAL COMMENTS - FREE TEXT/NARRATIVE: The patient presents with nausea, vomiting and left upper abdominal pain. This started last night. She has no fever or chills. She has no chest pain or shortness of breath. She has not been around anyone who is sick. She may have eaten some bad food. Her said she had some rice pudding that did not seem right. She has some pain with urination. She has no diarrhea. She still has her appendix and gallbladder. Onset: Sudden Duration: Day(s): (last night) Location: Reports: Abdomen Quality: Reports: Sharp Severity: Moderate Improves with: Reports: None Worsens with: Reports: None Associated Symptoms: Reports: Nausea/Vomiting. Denies: Chest Pain, Cough, Fever/Chills, Headaches, Shortness of Breath Left Upper Abdomen Pain Score (Numeric/FACES): 9 - Related Data Allergies Allergy/AdvReac Type Severity Reaction Status Date / Time No Known Allergies Allergy Verified 07/11/20 11:00 Home Meds: Home Meds Diclofenac Sodium [Voltaren] 50 mg PO ASDIRECTED PRN 04/07/20 [History] Diphenhyd/Phenyleph/Acetaminop [Theraflu Expressmax Night Cplt] 1 tab PO ASDIRECTED PRN 04/07/20 [History] LORazepam [Ativan] 2 mg PO BEDTIME PRN #10 tab 07/11/20 [Rx] Ondansetron [Zofran ODT] 4 mg PO Q6H PRN #20 tab.dis 07/11/20 [Rx] cephALEXin [Keflex] 500 mg PO BID #10 capsule 07/11/20 [Rx] Past Medical History HEENT History: Reports: Impaired Vision Cardiovascular History: Reports: None Respiratory History: Reports: Asthma, Bronchitis, Recurrent Gastrointestinal History: Reports: Diverticulosis Genitourinary History: Reports: UTI, Recurrent 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: Musculoskeletal History: Reports: Osteoarthritis Neurological History: Reports: None Psychiatric History: Reports: Anxiety Endocrine/Metabolic History: Reports: None Hematologic History: Reports: None Immunologic History: Reports: None Oncologic (Cancer) History: Reports: None Dermatologic History: Reports: None - Infectious Disease History Infectious Disease History: Reports: Novel Coronavirus - Past Surgical History Female Surgical History: Reports: Hysterectomy Musculoskeletal Surgical History: Reports: Knee Replacement Social & Family History - Tobacco Use Tobacco Use Status *Q: Never Tobacco User Second Hand Smoke Exposure: No - Caffeine Use Caffeine Use: Reports: Tea - Recreational Drug Use Recreational Drug Use: No - Living Situation & Occupation Living situation: Reports: , with Spouse Occupation: Unemployed ED ROS GENERAL - Review of Systems Review Of Systems: See Below Constitutional: Reports: No Symptoms HEENT: Reports: No Symptoms Respiratory: Reports: No Symptoms Cardiovascular: Reports: No Symptoms Endocrine: Reports: No Symptoms GI/Abdominal: Reports: Abdominal Pain, Nausea, Vomiting. Denies: Diarrhea : Reports: Dysuria Musculoskeletal: Reports: No Symptoms Skin: Reports: No Symptoms ED EXAM, GI/ABD - Physical Exam Exam: See Below Exam Limited By: No Limitations General Appearance: Alert, No Apparent Distress Ears: Normal External Exam Nose: Normal Inspection Head: Atraumatic, Normocephalic Neck: Normal Inspection Respiratory/Chest: No Respiratory Distress, Lungs Clear, Normal Breath Sounds Cardiovascular: Regular Rate, Rhythm, No Edema, No Murmur GI/Abdominal Exam: Soft, No Organomegaly, No Mass, Tender (Moderate tenderness to the left upper abdomen) Back Exam: Normal Inspection Extremities: Normal Inspection Course - Vital Signs Last Recorded V/S: Last Vital Signs Temp 97.8 F 07/11/20 09:45 Pulse 82 07/11/20 09:45 Resp 18 07/11/20 09:45 BP 145/85 H 07/11/20 09:45 Pulse Ox 96 07/11/20 09:45 - Orders/Labs/Meds Orders: Active Orders 24 hr Category Date Time Status Peripheral IV Care [RC] . DIRECTED Care 07/11/20 10:19 Active Sodium Chloride 0.9% [Saline Flush] Med 07/11/20 10:19 Active 10 ml FLUSH ASDIRECTED PRN Sodium Chloride 0.9% [Saline Flush] Med 07/11/20 10:24 Active 10 ml FLUSH ONETIME PRN ED Antiemetic Medication Reflex [OM.PC] Stat Oth 07/11/20 10:19 Ordered Peripheral IV Insertion Adult [OM.PC] Stat Oth 07/11/20 10:19 Ordered Medication Orders Sodium Chloride (Saline Flush) 10 ml FLUSH ASDIRECTED PRN PRN Reason: Keep Vein Open Last Admin: 07/11/20 10:34 Dose: 10 ml Documented by: KANDIS Sodium Chloride (Saline Flush) 10 ml FLUSH ONETIME PRN PRN Reason: IV FLUSH Last Admin: 07/11/20 11:56 Dose: 10 ml Documented by: VY Labs: Laboratory Tests 07/11/20 07/11/20 07/11/20 Range/Units 10:30 10:30 11:50 WBC 6.66 (3.98-10.04) K/mm3 RBC 5.54 H (3.98-5.22) M/mm3 Hgb 11.1 L (11.2-15.7) gm/dl Hct 36.1 (34.1-44.9) % MCV 65.2 L (79.4-94.8) fl MCH 20.0 L (25.6-32.2) pg MCHC 30.7 L (32.2-35.5) g/dl RDW Std Deviation 43.0 (36.4-46.3) fL Plt Count 274 D (182-369) K/mm3 MPV TNP Neut % (Auto) 66.9 (34.0-71.1) % Lymph % (Auto) 23.7 (19.3-51.7) % [place] % (Auto) 7.4 (4.7-12.5) % Eos % (Auto) 1.5 (0.7-5.8) Baso % (Auto) 0.3 (0.1-1.2) % Neut # (Auto) 4.46 (1.56-6.13) K/mm3 Lymph # (Auto) 1.58 (1.18-3.74) K/mm3 [place] # (Auto) 0.49 H (0.24-0.36) K/mm3 Eos # (Auto) 0.10 (0.04-0.36) K/mm3 Baso # (Auto) 0.02 (0.01-0.08) K/mm3 Manual Slide Review Abnormal smear Sodium 145 (136-145) mEq/L Potassium 3.4 L (3.5-5.1) mEq/L Chloride 104 (98-107) mEq/L Carbon Dioxide 27 (21-32) mEq/L Anion Gap 17.4 H (5-15) BUN 12 (7-18) mg/dL Creatinine 1.0 (0.55-1.02) mg/dL Est Cr Clr Drug Dosing 45.85 mL/min Estimated GFR (MDRD) 55 (>60) mL/min BUN/Creatinine Ratio 12.0 L (14-18) Glucose 142 H (80-115) mg/dL Calcium 9.1 (8.5-10.1) mg/dL Total Bilirubin 0.5 (0.2-1.0) mg/dL AST 12 L (15-37) U/L ALT 26 (14-59) U/L Alkaline Phosphatase 62 (46-116) U/L Total Protein 7.7 (6.4-8.2) g/dl Albumin 3.9 (3.4-5.0) g/dl Globulin 3.8 gm/dL Albumin/Globulin Ratio 1.0 (1-2) Lipase 105 (73-393) U/L Urine Color Yellow (Yellow) Urine Appearance Clear (Clear) Urine pH 6.5 (5.0-8.0) Ur Specific [place] 1.015 (1.005-1.030) Urine Protein Negative (Negative) Urine Glucose (UA) Negative (Negative) Urine Ketones Negative (Negative) Urine Occult Blood Negative (Negative) Urine Nitrite Negative (Negative) Urine Bilirubin Negative (Negative) Urine Urobilinogen 0.2 (0.2-1.0) Ur Leukocyte Esterase 2+ H (Negative) Urine RBC 0-5 (0-5) /hpf Urine WBC 5-10 H (0-5) /hpf Ur Squamous Epith Cells 0-5 (0-5) /hpf Urine Bacteria Few (FEW) /hpf Urine Mucus Not seen (FEW) /hpf Meds: Medications Generic Name Dose Route Start Last Admin Trade Name Freq PRN Reason Stop Dose Admin Sodium Chloride 10 ml 07/11/20 10:19 07/11/20 10:34 Saline Flush FLUSH 10 ml ASDIRECTED PRN Administration Keep Vein Open Sodium Chloride 10 ml 07/11/20 10:24 07/11/20 11:56 Saline Flush FLUSH 10 ml ONETIME PRN Administration IV FLUSH Discontinued Medications Generic Name Dose Route Start Last Admin Trade Name Freq PRN Reason Stop Dose Admin Diatrizoate Meglum/Diatrizoate Sod 120 ml 07/11/20 10:24 07/11/20 11:56 Gastrografin 37% PO 07/11/20 10:25 90 ml ONETIME ONE Administration Hydromorphone HCl 0.5 mg 07/11/20 10:20 07/11/20 10:33 Dilaudid IVPUSH 07/11/20 10:21 0.5 mg ONETIME ONE Administration Sodium Chloride 1,000 mls @ 1,000 mls/hr 07/11/20 10:19 07/11/20 10:32 Normal Saline IV 07/11/20 11:18 1,000 mls/hr .BOLUS STA Administration Iopamidol 100 ml 07/11/20 10:24 07/11/20 11:56 Isovue-300 (61%) IVPUSH 07/11/20 10:25 100 ml ONETIME ONE Administration Ondansetron HCl 4 mg 07/11/20 10:19 07/11/20 10:32 Zofran IVPUSH 07/11/20 10:20 4 mg ONETIME ONE Administration - Re-Assessments/Exams Free Text/Narrative Re-Assessment/Exam: 07/11/20 10:34 I ordered an IV NS 1L bolus, zofran 4mg IV, dilaudid 0.5mg IV, labs, UA and a CT of her abdomen and pelvis. 07/11/20 12:08 Her WBC was normal. Her Hgb was low at 11.1. Her K was low at 3.4. Her anion gap was elevated at 17.4. Her glucose was 142. Her lipase was normal. I am waiting on a UA and CT of her abdomen and pelvis. 07/11/20 12:29 Her UA shows a UTI. Her CT shows a small hiatal hernia with mild gastr oesophageal reflux of contrast. Diverticuli within the descending and sigmoid region without diverticulitis. Nothing acute is definitely appreciated. I will treat her with some keflex and zofran for nausea and vomiting. 07/11/20 12:39 She has more nausea so I ordered some reglan. Departure - Departure Time of Disposition: 12:40 Disposition: Home, Self-Care 01 Condition: Good Clinical Impression: Food poisoning UTI (urinary tract infection) Qualifiers: Urinary tract infection type: site unspecified Hematuria presence: without hematuria Qualified Code(s): N39.0 - Urinary tract infection, site not specified - Discharge Information *PRESCRIPTION DRUG MONITORING PROGRAM REVIEWED*: Not Applicable *COPY OF PRESCRIPTION DRUG MONITORING REPORT IN PATIENT CHRISTOPHER: Not Applicable Prescriptions: LORazepam [Ativan] 2 mg PO BEDTIME PRN #10 tab PRN Reason: Sleep cephALEXin [Keflex] 500 mg PO BID #10 capsule Ondansetron [Zofran ODT] 4 mg PO Q6H PRN #20 tab.dis PRN Reason: Nausea\vomiting Referrals: PCP,None [Primary Care Provider] - Forms: ED Department Discharge Additional Instructions: Drink plenty of fluids. Take keflex 2 times per day for 5 days. Take zofran every 6 hours as needed for nausea and vomiting. Take ativan 2mg at night for sleep. Please return if you are worse. Sepsis Event Note (ED) - Evaluation Sepsis Screening Result: No Definite Risk - Focused Exam Vital Signs: Vital Signs Temp Pulse Resp BP Pulse Ox 07/11/20 09:45 97.8 F 82 18 145/85 H 96 - My Orders Last 24 Hours: My Active Orders 07/11/20 10:19 Peripheral IV Care [RC] . DIRECTED Sodium Chloride 0.9% [Saline Flush] 10 ml FLUSH ASDIRECTED PRN ED Antiemetic Medication Reflex [OM.PC] Stat Peripheral IV Insertion Adult [OM.PC] Stat 07/11/20 10:24 Sodium Chloride 0.9% [Saline Flush] 10 ml FLUSH ONETIME PRN - Assessment/Plan Last 24 Hours: My Active Orders 07/11/20 10:19 Peripheral IV Care [RC] . DIRECTED Sodium Chloride 0.9% [Saline Flush] 10 ml FLUSH ASDIRECTED PRN ED Antiemetic Medication Reflex [OM.PC] Stat Peripheral IV Insertion Adult [OM.PC] Stat 07/11/20 10:24 Sodium Chloride 0.9% [Saline Flush] 10 ml FLUSH ONETIME PRN
--- NOTE | 2020-07-11 12:21 | CT ---
CT abdomen and pelvis Technique: Multiple axial sections were obtained from above the dome of the diaphragm inferiorly through the pubic symphysis. Intravenous and oral contrast was utilized. Delayed images were also obtained through the bladder. Reconstructed coronal and sagittal images were obtained. Comparison: Prior CT abdomen and pelvis study is available dated 01/12/20. Findings: Visualized lung bases show nothing acute. Liver contains no focal parenchymal abnormality. Gallbladder contains no calcified gallstones. Small hiatal hernia is seen with mild gastroesophageal reflux of contrast. Spleen appears within normal limits. Adrenal glands show no nodule. Kidneys show symmetric contrast enhancement with no hydronephrosis or discrete mass. Pancreas is within normal limits. Aorta shows mild atherosclerotic change with no aneurysm. No retroperitoneal adenopathy or mesenteric abnormalities are appreciated. Appendix is seen which is normal in size. Diverticuli are seen within the descending and sigmoid regions of the colon with no definite findings of inflammation to indicate diverticulitis. No bowel wall thickening is appreciated. Delayed images show contrast within the distal ureters and within the bladder. Numerous calcifications within the pelvis are seen compatible with numerous phleboliths. Bone window settings were reviewed which show mild scattered degenerative change within the spine without acute osseous finding. Fat-containing umbilical hernia is noted. Impression: 1. Small hiatal hernia with mild gastroesophageal reflux of contrast. 2. Diverticuli within the descending and sigmoid region without diverticulitis. 3. Nothing acute is definitely appreciated. Diagnostic code #2
[2020-07-11] MEDS ORDERED: Metoclopramide 10 MG/2 ML SDV IVPUSH ONE (12:34)
== END 2020-07-11 13:05 | disposition home or self-care (01) ==
LOC: JD.ED 09:42
DX: A05.9 Bacterial foodborne intoxication, unspecified (principal); N39.0 Urinary tract infection, site not specified; J45.909 Unspecified asthma, uncomplicated
CPT/HCPCS: 36415; 74177; 80053; 81001; 83690; 85025; 96374; 96375; 96376; 99284; J1170; J2405; J2765; J7030; Q9963; Q9967

== ENCOUNTER 2020-07-17 15:50 | Emergency (ER) | payer MEDICARE ==
[2020-07-17] MEDS ORDERED: Alum Hydrox/Mag Hydrox/Simeth 30 ML, Lidocaine 2% 15 ML PO ONE ×2 (16:41)
--- NOTE | 2020-07-17 16:47 | EDM.PDOC ---
ED HPI GENERAL MEDICAL PROBLEM - General Chief Complaint: Abdominal Pain Stated Complaint: STOMACH PAIN Time Seen by Provider: 07/17/20 16:18 Source of Information: Reports: Patient, Old Records, RN Notes Reviewed History Limitations: Reports: No Limitations - History of Present Illness INITIAL COMMENTS - FREE TEXT/NARRATIVE: Patient is a 70-year-old female who presents to the ED for the evaluation of her ongoing abdomen pain. Patient notes she was seen in this ER a few days ago, diagnosed with a bladder infection, started on cephalexin, and was thought to have food poisoning due to some bad rice pudding she thought she ate. She notes that she has been continuing to have pain in her abdomen, and has not been able to eat solid foods last 2 days due to nausea. She notes that as soon as she eats solid food, she gets nauseous and vomits. She was able to tolerate soup and other clear liquids. Patient does note that she had a bowel movement on Monday, but has not had a regular bowel movement since then. She reports no blood or black color to her stool. She does not think she was able to pass gas today. She does have a history of diverticulitis. She notes that the pain is in her left upper quadrant, and is stabbing at times. She states that when her stomach is empty, the pain seems to be much better. She does note that when she eats anything the pain does return. She still retains her gallbladder and appendix, but has had a hysterectomy. She does note that she had been admitted to hospital in [place], for 3 days, was placed on a clear liquid diet, and that seemed to alleviate her symptoms when she was having them then. She has had no fevers or chills, cough or shortness of breath, or any chest pain. She is still complaining of some burning with urination. 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: Musculoskeletal History: Reports: Osteoarthritis Psychiatric History: Reports: Anxiety - Infectious Disease History Infectious Disease History: Reports: Novel Coronavirus (04/2020) - Past Surgical History Female Surgical History: Reports: Hysterectomy Musculoskeletal Surgical History: Reports: Knee Replacement Social & Family History - Tobacco Use Tobacco Use Status *Q: Never Tobacco User - Caffeine Use Caffeine Use: Reports: None - Recreational Drug Use Recreational Drug Use: No - Living Situation & Occupation Living situation: Reports: , with Spouse Occupation: Unemployed ED ROS GENERAL - Review of Systems Review Of Systems: Comprehensive ROS is negative, except as noted in HPI. ED EXAM, GI/ABD - Physical Exam Exam: See Below Exam Limited By: No Limitations General Appearance: Alert, WD/WN, No Apparent Distress Respiratory/Chest: No Respiratory Distress, Lungs Clear, Normal Breath Sounds, No Accessory Muscle Use, Chest Non-Tender Cardiovascular: Normal Peripheral Pulses, Regular Rate, Rhythm, No Edema GI/Abdominal Exam: Normal Bowel Sounds, Soft, No Distention, Tender (suprapubic tenderness/LUQ tenderness) Extremities: Normal Inspection, Normal Capillary Refill Neurological: Alert, Oriented, Normal Cognition, No Motor/Sensory Deficits Psychiatric: Normal Affect, Normal Mood Skin Exam: Warm, Dry, Intact, Normal Color, No Rash Course - Vital Signs Last Recorded V/S: Last Vital Signs Temp 97.6 F 07/17/20 16:17 Pulse 64 07/17/20 16:17 Resp 12 07/17/20 16:17 BP 142/77 H 07/17/20 16:17 Pulse Ox 10 L 07/17/20 16:17 - Orders/Labs/Meds Orders: Active Orders 24 hr Category Date Time Status KUB [Abdomen 1V Flat] [CR] Stat Exams 07/17/20 16:40 Taken CULTURE URINE [RM] Routine Lab 07/17/20 17:15 Ordered Phenazopyridine [Urinary Pain Relief] Med 07/17/20 18:10 Once 95 mg PO ONETIME ONE Labs: Laboratory Tests 07/17/20 07/17/20 07/17/20 Range/Units 16:45 16:50 16:50 WBC 6.76 (3.98-10.04) K/mm3 RBC 5.32 H (3.98-5.22) M/mm3 Hgb 10.6 L (11.2-15.7) gm/dl Hct 34.9 (34.1-44.9) % MCV 65.6 L (79.4-94.8) fl MCH 19.9 L (25.6-32.2) pg MCHC 30.4 L (32.2-35.5) g/dl RDW Std Deviation 43.3 (36.4-46.3) fL Plt Count 275 (182-369) K/mm3 Neut % (Auto) 55.5 (34.0-71.1) % Lymph % (Auto) 33.9 (19.3-51.7) % [place] % (Auto) 8.3 (4.7-12.5) % Eos % (Auto) 1.6 (0.7-5.8) Baso % (Auto) 0.6 (0.1-1.2) % Neut # (Auto) 3.75 (1.56-6.13) K/mm3 Lymph # (Auto) 2.29 (1.18-3.74) K/mm3 [place]od # (Auto) 0.56 H (0.24-0.36) K/mm3 Eos # (Auto) 0.11 (0.04-0.36) K/mm3 Baso # (Auto) 0.04 (0.01-0.08) K/mm3 Manual Slide Review Abnormal smear Sodium 144 (136-145) mEq/L Potassium 4.1 (3.5-5.1) mEq/L Chloride 106 (98-107) mEq/L Carbon Dioxide 28 (21-32) mEq/L Anion Gap 14.1 (5-15) BUN 7 (7-18) mg/dL Creatinine 0.9 (0.55-1.02) mg/dL Est Cr Clr Drug Dosing 50.94 mL/min Estimated GFR (MDRD) > 60 (>60) mL/min BUN/Creatinine Ratio 7.8 L (14-18) Glucose 101 (80-115) mg/dL Calcium 8.9 (8.5-10.1) mg/dL Total Bilirubin 0.4 (0.2-1.0) mg/dL GGT 26 (5-55) U/L AST 17 (15-37) U/L ALT 26 (14-59) U/L Alkaline Phosphatase 67 (46-116) U/L Total Protein 7.7 (6.4-8.2) g/dl Albumin 4.0 (3.4-5.0) g/dl Globulin 3.7 gm/dL Albumin/Globulin Ratio 1.1 (1-2) Lipase 126 (73-393) U/L Urine Color Light yellow (Yellow) Urine Appearance Clear (Clear) Urine pH 7.0 (5.0-8.0) Ur Specific [place] 1.010 (1.005-1.030) Urine Protein Negative (Negative) Urine Glucose (UA) Negative (Negative) Urine Ketones Negative (Negative) Urine Occult Blood Negative (Negative) Urine Nitrite Negative (Negative) Urine Bilirubin Negative (Negative) Urine Urobilinogen 0.2 (0.2-1.0) Ur Leukocyte Esterase Trace H (Negative) Urine RBC 0-5 (0-5) /hpf Urine WBC 0-5 (0-5) /hpf Ur Squamous Epith Cells 0-5 (0-5) /hpf Urine Bacteria Occasional (FEW) /hpf Urine Mucus Rare (FEW) /hpf Meds: Medications Discontinued Medications Generic Name Dose Route Start Last Admin Trade Name Sukhjinderq PRN Reason Stop Dose Admin Al Hydroxide/Mg Hydroxide 30 0 ml 07/17/20 16:41 07/17/20 17:05 ml/ Lidocaine HCl 15 ml PO 07/17/20 16:42 45 ml ONETIME ONE Administration Dicyclomine HCl 20 mg 07/17/20 17:49 07/17/20 17:56 Bentyl PO 07/17/20 17:50 20 mg ONETIME ONE Administration Magnesium Citrate 296 ml 07/17/20 17:34 07/17/20 17:56 Citrate Of Magnesia PO 07/17/20 17:35 296 ml ONETIME ONE Administration - Re-Assessments/Exams Free Text/Narrative Re-Assessment/Exam: 07/17/20 16:46 Patient presents to the ED for ongoing abdomen pain. This does seem to be in her left upper quadrant, along with some suprapubic tenderness for today's purposes we will get another urinalysis to evaluate for continuing UTI, basic labs to include a GGT and lipase, CBC and CMP patient will get a KUB to evaluate for constipation versus obstruction versus other. We will give her GI cocktail, as there does seem to be a portion of reflux associated with her story. 07/17/20 17:49 The patient's abdomen x-ray does demonstrate quite a bit of stool throughout her colon, labs are essentially unremarkable. Urinalysis shows only a trace of leukocyte esterase with 0-5 white blood cell per high-power field. Patient's urine will be sent for culture. I did go over the findings with the patient, she verbalizes understanding at this time. We will get her home with some conservative recommendations a bottle of mag citrate and a prescription for dicyclomine for the abdomen cramping. Departure - Departure Time of Disposition: 17:50 Disposition: Home, Self-Care 01 Condition: Good Clinical Impression: Constipation Qualifiers: Constipation type: other constipation type Qualified Code(s): K59.09 - Other constipation Acid reflux Qualifiers: Esophagitis presence: esophagitis presence not specified Qualified Code(s): K21.9 - Gastro-esophageal reflux disease without esophagitis - Discharge Information *PRESCRIPTION DRUG MONITORING PROGRAM REVIEWED*: No *COPY OF PRESCRIPTION DRUG MONITORING REPORT IN PATIENT CHRISTOPHER: No Prescriptions: Dicyclomine [Bentyl] 20 mg PO TID #12 tab Instructions: Food Choices for Gastroesophageal Reflux Disease, Adult, [id number], Constipation, Adult, [id number] Referrals: PCP,None [Primary Care Provider] - Forms: ED Department Discharge Additional Instructions: You have been evaluated in the ED for nausea/vomiting/constipation. You had labs done at this visit along with abdomen x-rays, these did demonstrate that you are constipated. You have been given a bottle of magnesium citrate, please drink one half bottle, if you do not have a rather large bowel movement in the next few hours, continue with the last half bottle. Please note that you will have some mild abdomen cramping while using this medication, and you may have some looser stools towards the end of use of this medication. Over the next 48-72 hours please try to limit diet to clear liquids and advance as tolerate to a bland diet to alleviate symptoms of nausea/vomiting. Please use the Zofran every 8 hours as needed for nausea. You may use the dicycolmine (Bentyl) as directed for abdomen cramping, or use 400-600mg ibuprofen Q6H PRN. There is also a suspected portion of reflux disease, you should get Prilosec OTC, and take 1 tablet daily, this will take up to 72 hours to start providing you benefit. In the meantime you may take a medication like Pepcid AC, or something to coat the stomach like Maalox or Gaviscon. Please take as directed on the back of the bottle. These are all hang-jws-eodmjhi medications, if you are having difficulty finding these in the pharmacy/store, please have a pharmacist direct you to these medications. You may also try a medication called Azo, this is for urinary discomfort. Please take 1 tablet 3 times a day as needed, do not use more than 6 doses in 24 hours. This will make your urine turn orange. Please return to the ED if your symptoms should change or worsen. Sepsis Event Note (ED) - Evaluation Sepsis Screening Result: No Definite Risk - Focused Exam Vital Signs: Vital Signs Temp Pulse Resp BP Pulse Ox 07/17/20 16:17 97.6 F 64 12 142/77 H 10 L - My Orders Last 24 Hours: My Active Orders 07/17/20 16:40 KUB [Abdomen 1V Flat] [CR] Stat 07/17/20 17:15 CULTURE URINE [RM] Routine 07/17/20 18:10 Phenazopyridine [Urinary Pain Relief] 95 mg PO ONETIME ONE - Assessment/Plan Last 24 Hours: My Active Orders 07/17/20 16:40 KUB [Abdomen 1V Flat] [CR] Stat 07/17/20 17:15 CULTURE URINE [RM] Routine 07/17/20 18:10 Phenazopyridine [Urinary Pain Relief] 95 mg PO ONETIME ONE
[2020-07-17] MEDS ORDERED: Magnesium Citrate Solution 296 ML Bottle PO ONE (17:34)
[2020-07-17] MEDS ORDERED: Dicyclomine 10 MG Cap PO ONE (17:49)
[2020-07-17] MEDS ORDERED: Phenazopyridine 95 MG Tab PO ONE (18:10)
--- NOTE | 2020-07-17 20:47 | CR ---
Abdomen: Supine view of the abdomen was obtained. Comparison: Prior abdominal x-ray of 03/03/20. Multiple calcifications are seen within the pelvis. Bowel gas pattern is felt to be within normal limits. Bony structures appear within normal limits for the patient's age. Stable bone island is noted within the left proximal femur. Impression: 1. Nothing acute is appreciated on supine abdominal x-ray. Diagnostic code #2
== END 2020-07-17 18:41 | disposition home or self-care (01) ==
LOC: JD.ED 15:50
DX: K21.9 Gastro-esophageal reflux disease without esophagitis (principal); K59.09 Other constipation; J45.909 Unspecified asthma, uncomplicated; Z86.16 Personal history of COVID-19; Z79.899 Other long term (current) drug therapy
CPT/HCPCS: 36415; 74018; 80053; 81001; 82977; 83690; 85025; 87086; 99284; A9270; 99283

== ENCOUNTER 2020-08-07 17:29 | Emergency (ER) | payer MEDICARE ==
--- NOTE | 2020-08-07 18:13 | EDM.PDOC ---
ED HPI GENERAL MEDICAL PROBLEM - General Chief Complaint: ENT Problem Stated Complaint: SORE THROAT Time Seen by Provider: 08/07/20 17:51 Source of Information: Reports: Patient, Old Records, RN Notes Reviewed History Limitations: Reports: No Limitations - History of Present Illness INITIAL COMMENTS - FREE TEXT/NARRATIVE: Patient is a 70-year-old female who presents to the ED for sore throat, and urinary burning. Patient states that the burning started this morning, and she is been having difficulty swallowing with a sore throat since around 4 PM today. She is not had any fevers or chills, cough or shortness of breath. She has been having some issues with ongoing suspected GERD or reflux. Review of her clinic notes demonstrate that she may have SLE or lupus as well, some prediabetes, and possibly rheumatoid arthritis. Patient was recently started on Metformin for the prediabetes, and a prednisone burst for suspected SLE/RA. I do believe that the patient is scheduled with Dr. Rangel for outpatient surgery on August 11 for EGD and colonoscopy. Patient states that she is not having any nausea or vomiting or diarrhea, but that her butt lovell when she goes to the bathroom. Patient is somewhat hard to understand, she is of descent, but her does try to relay translation. Throat Pain Score (Numeric/FACES): 6 - Related Data Allergies Allergy/AdvReac Type Severity Reaction Status Date / Time No Known Allergies Allergy Verified 08/07/20 17:47 Home Meds: Home Meds LORazepam [Ativan] 2 mg PO BEDTIME PRN #10 tab 07/11/20 [Rx] Ondansetron [Zofran ODT] 4 mg PO Q6H PRN #20 tab.dis 07/11/20 [Rx] Dicyclomine [Bentyl] 20 mg PO TID #12 tab 07/17/20 [Rx] Cefdinir [Omnicef] 300 mg PO BID 7 Days #14 cap 08/07/20 [Rx] Sucralfate [Carafate] 1 container PO TIDAC #21 cup 08/07/20 [Rx] Past Medical History HEENT History: Reports: Impaired Vision Cardiovascular History: Reports: None Respiratory History: Reports: Asthma, Bronchitis, Recurrent Gastrointestinal History: Reports: Diverticulosis Genitourinary History: Reports: UTI, Recurrent [employer] C[employer] 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: Musculoskeletal History: Reports: Osteoarthritis Neurological History: Reports: None Psychiatric History: Reports: Anxiety Endocrine/Metabolic History: Reports: None Hematologic History: Reports: None Immunologic History: Reports: None Oncologic (Cancer) History: Reports: None Dermatologic History: Reports: None - Infectious Disease History Infectious Disease History: Reports: Novel Coronavirus - Past Surgical History Female Surgical History: Reports: Hysterectomy Musculoskeletal Surgical History: Reports: Knee Replacement Social & Family History - Tobacco Use Tobacco Use Status *Q: Never Tobacco User - Caffeine Use Caffeine Use: Reports: None - Living Situation & Occupation Living situation: Reports: , with Spouse Occupation: Unemployed ED ROS ENT - Review of Systems Review Of Systems: Comprehensive ROS is negative, except as noted in HPI. ED EXAM, ENT - Physical Exam Exam: See Below Exam Limited By: No Limitations General Appearance: Alert, WD/WN, No Apparent Distress Mouth/Throat: Normal Inspection, Normal Gums, Normal Lips, Normal Teeth, Pharyngeal Erythema (bilateral). No: Tonsillar Exudates Head: Atraumatic, Normocephalic Neck: Normal Inspection, Supple, Non-Tender, Full Range of Motion Respiratory/Chest: No Respiratory Distress, Lungs Clear, Normal Breath Sounds, No Accessory Muscle Use, Chest Non-Tender Cardiovascular: Normal Peripheral Pulses, Regular Rate, Rhythm, No Edema GI/Abdominal: Normal Bowel Sounds, Soft, No Distention, No Mass, Tender (over epigastrium) Extremities: Normal Inspection, Normal Capillary Refill Neurological: Alert, Oriented, Normal Cognition, No Motor/Sensory Deficits Psychiatric: Normal Affect, Normal Mood Skin: Warm, Dry, Intact, Normal Color, No Rash Course - Vital Signs Last Recorded V/S: Last Vital Signs Temp 97.0 F 08/07/20 17:45 Pulse 84 08/07/20 17:45 Resp 16 08/07/20 17:45 BP 167/87 H 08/07/20 17:45 Pulse Ox 92 L 08/07/20 17:45 - Orders/Labs/Meds Labs: Laboratory Tests 08/07/20 08/07/20 Range/Units 17:45 17:47 Urine Color Yellow (Yellow) Urine Appearance Clear (Clear) Urine pH 6.0 (5.0-8.0) Ur Specific [place] 1.025 (1.005-1.030) Urine Protein Negative (Negative) Urine Glucose (UA) Negative (Negative) Urine Ketones Negative (Negative) Urine Occult Blood Negative (Negative) Urine Nitrite Negative (Negative) Urine Bilirubin Negative (Negative) Urine Urobilinogen 0.2 (0.2-1.0) Ur Leukocyte Esterase 2+ H (Negative) Urine RBC 0-5 (0-5) /hpf Urine WBC 30-40 H (0-5) /hpf Ur Squamous Epith Cells 5-10 H (0-5) /hpf Urine Bacteria Few (FEW) /hpf Urine Mucus Moderate H (FEW) /hpf Group A Strep (PCR) Not detected (NOT DETECT) - Re-Assessments/Exams Free Text/Narrative Re-Assessment/Exam: 08/07/20 18:12 Patient presents to the ED for her sore throat and burning with urination. She does have some ongoing underlying health issues, she asked me to "tell me what is wrong with her". Again review of her clinic records show that she may or may not have lupus, she was treated for thrush, is thought to have prediabetes and rheumatoid arthritis. She had been given a course of prednisone, and started on Metformin for these issues. For today's purposes we will get a urinalysis and a strep screen, and have her continue her medications as previously prescribed and follow-up with Dr. Rangel on 11 August for suspected EGD/colonoscopy for further evaluation. 08/07/20 18:47 The patient's urine did come back and is positive for UTI at this time with 2+ leukocyte Estrace and 40-50 white blood cells per high-power field. Still awaiting strep screen. Will likely treat patient with Omnicef twice daily for ongoing UTI. 08/07/20 19:01 Strep screen is negative, I will go over the results with the patient, and have her follow-up with Dr. Rangel on the for her scheduled procedures. Departure - Departure Time of Disposition: 19:14 Disposition: Home, Self-Care 01 Condition: Good Clinical Impression: UTI (urinary tract infection) Qualifiers: Urinary tract infection type: acute cystitis Hematuria presence: without hematuria Qualified Code(s): N30.00 - Acute cystitis without hematuria Gastritis Qualifiers: Gastritis type: unspecified gastritis Chronicity: acute Gastritis bleeding: presence of bleeding unspecified Qualified Code(s): K29.00 - Acute gastritis without bleeding - Discharge Information *PRESCRIPTION DRUG MONITORING PROGRAM REVIEWED*: No *COPY OF PRESCRIPTION DRUG MONITORING REPORT IN PATIENT CHRISTOPHER: No Prescriptions: Sucralfate [Carafate] 1 container PO TIDAC #21 cup Cefdinir [Omnicef] 300 mg PO BID 7 Days #14 cap Instructions: Gastritis, Adult, [id number], Urinary Tract Infection, Adult, [id number] Referrals: Milena Guevara, FAUSTINO [Primary Care Provider] - Forms: ED Department Discharge Additional Instructions: You have been evaluated in the ED for your urinary symptoms and sore throat. Your strep screen was negative at today's visit. Your urinalysis was consistent with an acute urinary tract infection. Your urine was sent for culture, and you will be notified if you should need a change in your antibiotic. This may take up to 48 hours to result. You may take AZO for urinary pain relief. This is available over the counter, and can be attained at any retail store like [employer] or any pharmacy. Please be aware that this medication will make your urine turn orange. You have been given a prescription for Omnicef (cefdinir), 300 mg 1 tablet 2 times a day for 7 days. Please note that the antibiotics can take up to 48 hours to start working. You were given a medication called Carafate to help coat the stomach lining to provide some relief from the burning you are experiencing. You may mix this wi th about 30 mils of Maalox, which is available [id number], as the Carafate can be somewhat chalky in taste. Recommend you do this 3 times a day, before meals, to help provide a protective lining of the stomach. Please increase your oral fluid intake and try to stay adequately hydrated. Please continue all other medications as previously prescribed and follow-up with Dr. Rangel on the ninth for your scheduled procedures. Please return to the ED if your symptoms change or worsen. Sepsis Event Note (ED) - Evaluation Sepsis Screening Result: No Definite Risk - Focused Exam Vital Signs: Vital Signs Temp Pulse Resp BP Pulse Ox 08/07/20 17:45 97.0 F 84 16 167/87 H 92 L
[2020-08-07] MEDS ORDERED: LORazepam 0.5 MG Tab PO ONE (19:42)
== END 2020-08-07 19:54 | disposition home or self-care (01) ==
LOC: JD.ED 17:29
DX: N30.00 Acute cystitis without hematuria (principal); K29.00 Acute gastritis without bleeding; J45.909 Unspecified asthma, uncomplicated; Z20.822 Contact with and (suspected) exposure to COVID-19
CPT/HCPCS: 81001; 87086; 87088; 87186; 87651; 99211; 99284; A9270; U0002; 99283

== ENCOUNTER 2021-07-25 03:36 | Emergency (ER) | payer MEDICARE ==
[2021-07-25] MEDS ORDERED: HYDROmorphone 0.5 MG/0.5 ML Syringe IVPUSH ONE (04:34)
[2021-07-25] MEDS ORDERED: predniSONE 20 MG Tab PO STA (05:46)
== END 2021-07-25 06:12 | disposition home or self-care (01) ==
LOC: JD.ED 03:36
DX: M19.90 Unspecified osteoarthritis, unspecified site (principal); Z86.16 Personal history of COVID-19
CPT/HCPCS: 36415; 80048; 85025; 86140; 96374; 99283; J1170; J7512; 99284